=== PATIENT | male | born 1990 | race Caucasian/White ===

== ENCOUNTER 2019-12-09 04:25 | Emergency (ER) | payer SELFPAY ==
[2019-12-09 04:28] VITALS: BP 149/95; PULSE 62; RESP 18; TEMP 36.8; O2SAT 99; BMI 24.3
--- NOTE | 2019-12-09 04:41 | ED_ITS ---
HPI - Dental/Oral General: Chief complaint: Dental/Oral Stated complaint: DENTAL PAIN Time Seen by Provider: 12/09/19 04:40 History of Present Illness: HPI Narrative: Al is a 29-year-old male who comes in complaining of dental pain. The pain is been present for the past several days. He denies any fever, facial swelling or vomiting. The pain is located in his upper right side of his mouth. He states he is tried to make appointments with dentist but secondary to the COVID pandemic he has been unable to secure an appointment. Teeth map: 1. Associated symptoms: Denies ear or mastoid pain, fever(s), odynophagia or tongue swelling Review of Systems Const: Denies: fever(s), chills, body aches, fatigue, malaise, night sweats or diaphoresis Eyes: Denies: change in vision, blurry vision or blind spots ENMT: Denies: throat pain, odynophagia, hoarseness, ear or mastoid pain, ear discharge, change in hearing or nasal discharge Card: Denies: chest pain, palpitations, irregular heart rhythm, lighthe adedness, syncope, pre-syncope, dyspnea on exertion or orthopnea Resp: Denies: dyspnea, productive cough, non-productive cough, wheezing, hemoptysis or chest congestion GI: Denies: abdominal pain, nausea, vomiting, hematemesis, coffee ground emesis, heartburn, diarrhea, constipation, GI cramping, hematochezia or melena : Denies: flank pain, dysuria, urinary frequency, urinary urgency, oliguria, urinary incontinence or hematuria Musc: Denies: neck pain, back pain, extremity pain, extremity swelling, joint pain, joint swelling, joint redness, joint warmth or joint stiffness Skin/Breast: Denies: rash, pruritus, erythema, skin tenderness or jaundice Neuro: Denies: headache(s), numbness in extremities, weakness in extremities, sensory changes, lack of coordination, difficulty walking, dizziness, vertigo, confusion or Slurred speech present Endo: Denies: polyuria, polydipsia, tired all the time, cold intolerance, excessive sweating, flushing, hot flashes or heat intolerance Romario/Lymph: Denies: easy bruising, easy bleeding, petechiae, purpura or enl arged lymph nodes All/Imm: Denies: urticaria, throat swelling, tongue swelling, facial swelling or acute wheezing PFSH ED PFSH: Medical History No pertinent past medical history Social History Smoking and tobacco status: current every day smoker Physical Exam Const: COMMON NORMALS: no acute distress, patient oriented x3, no limitations, healthy appearing and well nourished EXAM LIMITATIONS: no altered mental status GENERAL APPEARANCE: cooperative, well kempt and well developed HENMT: COMMON NORMALS: normocephalic, atraumatic, hearing grossly normal bilaterally, external ears normal, EAC's normal, Normal external nose present and moist oral mucous membranes HEAD & SCALP: normal to inspection, normocephalic and atraumatic FACE & SINUS: normal facial exam and face symmetric NOSE: Normal external nose present and Normal nares present EXTERNAL EAR: Yes external ears normal EXTERNAL AUDITORY CANAL: EAC's normal MOUTH: Normal oral and palatal mucosa present, lip normal and tongue normal TEETH & GINGIVA: Yes other (Fifth tooth on the right side from back as marked on diagram with a severe carried down to the pulp. No associated gingival or abscess seen. No evidence of facial swelling or erythema.) Eye: COMMON NORMALS: Equal, round and reactive pupils present, EOMs intact bilaterally, conjunctivae normal and no scleral icterus GENERAL EYE: appearance normal, both eyes and all related structures ALIGNMENT: Yes alignment normal PERIORBITAL: periorbital findings normal EYELID: eyelids normal CONJUNCTIVA: Yes conjunctivae normal SCLERA: sclerae normal PUPIL: Yes Equal, round and reactive pupils present Neck/C-Spine: COMMON NORMALS: full ROM, no lymphadenopathy, supple, no meningeal signs and no JVD GENERAL: Yes normal visual inspection and Yes trachea midline CERVICAL SPINE: Yes cervical ROM normal Chest: COMMONS NORMALS: normal inspection of the chest and normal palpation of entire chest wall Resp: COMMON NORMALS: normal respiratory effort, No retractions, No use of accessory muscles and clear to auscultation bilaterally EFFORT & INSPECTION: Yes able to speak in complete sentences AUSCULTATION: clear to auscultation bilaterally, no crackles, no rales, no rhonchi and no wheezes Cardio: COMMON NORMALS: no JVD, regular rate, regular rhythm, S1 normal heart sound present, S2 normal heart sound present, No gallops present (Cardio), No clicks present (Cardio), No murmurs present (Cardio) and No rub (Cardio) RATE: regular rate RHYTHM: regular rhythm HEART SOUNDS: S1 normal heart sound present, S2 normal heart sound present, no click, no gallops, no murmurs and no rubs GI: COMMON NORMALS: Soft to palpation, non-tender, No hepatosplenomegaly present and no masses PALPATION: Yes Soft to palpation, No Tenderness to palpation present (GI), No Guarding due to palpation present (GI), No Rigid due to palpation, Yes No hepatosplenomegaly present, No Hernia present, No Palpable mass present and No Pulsatile mass present : COMMON NORMALS: Yes no CVA tenderness BLADDER/KIDNEY EXAM: Yes no CVA tenderness Back/Pelvis: COMMON NORMALS: no CVA tenderness, thoracic and lumbar spine normal to inspection, no thoracic nor lumbar tenderness and thoraco-lumbar ROM normal Extremity: COMMON NORMALS: normal to inspection, full ROM, capillary refill normal, no joint enlargement, no clubbing, cyanosis or edema and no calf tenderness Neuro: COMMON NORMALS: patient oriented x3, CN's II-XII intact bilaterally, moves all extremities, no focal motor deficits and no sensory deficits noted MENINGEAL SIGNS: Yes no meningeal signs SPEECH: speech normal Psych: COMMON NORMALS: mental status grossly normal, Normal thought process present, cooperative, normal affect, speech normal and activity/motor behavior normal APPEARANCE: Yes well kempt SPEECH: Yes normal speech THOUGHT PROCESS: Normal thought process present Skin: COMMON NORMALS: no rashes or lesions noted, turgor normal, no jaundice, no petechiae and no mottling GENERAL SKIN EXAM: no rashes or lesions noted and turgor normal Course Vital Signs: Vital signs: Vital Signs Temperature 98.2 F 12/09/19 04:28 Pulse Rate 62 12/09/19 04:28 Respiratory Rate 18 12/09/19 04:28 Blood Pressure 149/95 12/09/19 04:28 Pulse Oximetry 99 12/09/19 04:28 MDM - Dental/Oral MDM Narrative: Medical decision making narrative: Patient has an obvious dental carry with pain. There is no sign of dental abscess at this time. I will place the patient on pain medication, clindamycin for infection and have him follow-up with a dentist as he is trying to do. I see no sign of airway compromise or deep space infection or abscess at this time. Discharge Plan Discharge Patient Disposition: Home, Self-Care Clinical Impression: Toothache Condition: Stable Prescriptions: New ibuprofen 800 mg tablet 800 mg PO TID PRN (Reason: pain) Qty: 30 RF: 0 Cleocin HCl 150 mg capsule 300 mg PO Q6H 10 Days Qty: 80 RF: 0 Discharge Orders: Discharge Order (Routine); Ordered 12/09/19 Ordered By: Joann Gómez Discharge Diet: Advance as tolerated Discharge Activity: Increase activity as tolerated Patient Instructions: Dental Caries (ED) Activity Restrictions/Additional Instructions: Please return to the ER immediately for any of the signs or symptoms listed on your discharge instruction sheets, worsening/changing of your symptoms, you are not getting better as quickly as expected, or for ANY other cause or concerns. Call a local dentist or [facility] for an appointment to be seen for definitive care. Coding Level of Care Code ED Training Project Manager for Zack Chacon
[2019-12-09] MEDS: HYDROcodone-acetaminophen 10-325 mg Tablet 1 TAB PO (04:47)
[2019-12-09] MEDS: ibuprofen 600 mg Tablet PO (04:47)
[2019-12-09] MEDS: clindamycin 150 mg Capsule 300 MG PO (04:47)
== END 2019-12-09 05:05 | disposition home or self-care (01) ==
PROVIDERS: Emergency Provider Emergency Medicine
DX: K08.89 Other specified disorders of teeth and supporting structures (principal); F17.210 Nicotine dependence, cigarettes, uncomplicated
CPT/HCPCS: 12345; 99281; 99283

== ENCOUNTER 2020-02-20 15:03 | Inpatient (IN) | payer SELFPAY ==
[2020-02-20 15:04] VITALS: BP 156/90; PULSE 58; RESP 16; TEMP 36.8; O2SAT 98; BMI 23.7
--- NOTE | 2020-02-20 15:05 | ECG_ITS ---
[facility] Test Date: 2020-02-20 Pat Name: Al Noble Department: Room: Gender: Male [employer]: : 1990 Requested By: Joann Noriega Order Number: [id number] Leo MD: Tariq Sellers M.D. Measurements Intervals [place] Rate: 59 P: 68 IN: 132 QRS: 59 QRSD: 112 T: 43 QT: 401 QTc: 398 Interpretive Statements SINUS BRADYCARDIA MODERATE INTRAVENTRICULAR CONDUCTION DELAY [110+ ms QRS DURATION] Compared to ECG 12/28/2018 22:25:50 Sinus arrhythmia no longer present T-wave abnormality no longer present Prolonged QT interval no longer present Electronically Signed On 02-20-2020 16:07:19 CDT by Tariq Sellesr M.D. [id number]
[2020-02-20 15:30] VITALS: RESP 18
--- NOTE | 2020-02-20 15:35 | W.ED.PSYCH ---
HPI - Psych General: Chief Complaint: Psychiatric Symptoms Stated Complaint: si Time Seen by Provider: 02/20/20 15:05 Source: patient Limitations: no limitations History of Present Illness: HPI Narrative: Real is a nice 29-year-old male who comes in with a complaint of suicidal ideation. He states he was going to try to hang himself but his mother stopped it. He appears severely depressed. His mother brought him here to the ER for evaluation. He does want to get help. He states he needs to get his life and medications straightened out. The patient is withdrawn and of a difficult historian. Review of Systems Const: Denies: fever(s), chills, body aches, fatigue, malaise or diaphoresis Eyes: Denies: change in vision, blurry vision, blind spots, photophobia, eye discharge or eye redness ENMT: Denies: throat pain, odynophagia, hoarseness, swelling of lips/tongue, oral sores, ear or mastoid pain, ear discharge, change in hearing or nasal discharge Card: Denies: chest pain, palpitations, irregular heart rhythm, edema, lightheadedness, syncope, pre-syncope, dyspnea on exertion or orthopnea Resp: Denies: dyspnea, productive cough, non-productive cough, wheezing, hemoptysis or chest congestion GI: Denies: abdominal pain, nausea, vomiting, hematemesis, coffee ground emesis, heartburn, diarrhea, constipation, GI cramping, hematochezia or melena : Denies: flank pain, dysuria, urinary frequency, urinary urgency or hematuria Musc: Denies: neck pain, back pain, extremity pain, extremity swelling, joint pain, joint swelling, joint redness, joint warmth or joint stiffness Skin/Breast: Denies: rash, pruritus, erythema, skin tenderness or jaundice Neuro: Denies: headache(s), numbness in extremities, weakness in extremities, sensory changes, lack of coordination, difficulty walking, dizziness, vertigo, confusion, Slurred speech present or seizure-like activity Romario/Lymph: Denies: easy bruising, easy bleeding, petechiae, purpura or enlarged lymph nodes All/Imm: Denies: urticaria, throat swelling, tongue swelling, facial swelling or acute wheezing PFSH ED PFSH: Medical History (Updated 02/20/20 @ 15:38 by Joann Gómez) No pertinent past medical history No pertinent past medical history Social History Smoking and tobacco status: current every day smoker Physical Exam Const: COMMON NORMALS: no acute distress, patient oriented x3, no limitations, healthy appearing and well nourished GENERAL APPEARANCE: cooperative, well kempt and well developed HENMT: COMMON NORMALS: normocephalic, atraumatic, external ears normal, EAC's normal and Normal external nose present HEAD & SCALP: normal to inspection, normocephalic and atraumatic FACE & SINUS: normal facial exam and face symmetric NOSE: Normal external nose present and Normal nares present EXTERNAL EAR: Yes external ears normal EXTERNAL AUDITORY CANAL: EAC's normal MOUTH: Normal oral and palatal mucosa present, lip normal and tongue normal Eye: COMMON NORMALS: Equal, round and reactive pupils present and conjunctivae normal GENERAL EYE: appearance normal, both eyes and all related structures ALIGNMENT: Yes alignment normal PERIORBITAL: periorbital findings normal EYELID: eyelids normal CONJUNCTIVA: Yes conjunctivae normal SCLERA: sclerae normal PUPIL: Yes Equal, round and reactive pupils present Neck/C-Spine: COMMON NORMALS: full ROM, no lymphadenopathy, supple, no meningeal signs and no JVD GENERAL: Yes normal visual inspection and Yes trachea midline Chest: COMMONS NORMALS: normal inspection of the chest and normal palpation of entire chest wall Resp: COMMON NORMALS: normal respiratory effort, No retractions and No use of accessory muscles EFFORT & INSPECTION: Yes able to speak in complete sentences and Yes symmetric chest movement AUSCULTATION: no crackles, no rales, no rhonchi and no wheezes Cardio: COMMON NORMALS: no JVD, regular rate, regular rhythm, S1 normal heart sound present and S2 normal heart sound present RATE: regular rate RHYTHM: regular rhythm HEART SOUNDS: S1 normal heart sound present, S2 normal heart sound present, no click, no gallops, no murmurs, no rubs and abnormal split S2 GI: COMMON NORMALS: Soft to palpation and No hepatosplenomegaly present PALPATION: Yes Soft to palpation, No Tenderness to palpation present (GI), No Guarding due to palpation present (GI), No Rigid due to palpation, Yes No hepatosplenomegaly present, No Hernia present, No Palpable mass present and No Pulsatile mass present : COMMON NORMALS: Yes no CVA tenderness BLADDER/KIDNEY EXAM: Yes no CVA tenderness Back/Pelvis: COMMON NORMALS: no CVA tenderness, thoracic and lumbar spine normal to inspection, no thoracic nor lumbar tenderness and thoraco-lumbar ROM normal Extremity: COMMON NORMALS: normal to inspection, full ROM, capillary refill normal, no joint enlargement, no clubbing, cyanosis or edema and no calf tenderness Neuro: COMMON NORMALS: patient oriented x3, CN's II-XII intact bilaterally, moves all extremities, no focal motor deficits and no sensory deficits noted MENINGEAL SIGNS: Yes no meningeal signs SPEECH: speech normal Psych: COMMON NORMALS: mental status grossly normal, Normal thought process present, cooperative, normal affect, speech normal and activity/motor behavior normal APPEARANCE: Yes well kempt SPEECH: Yes normal speech THOUGHT PROCESS: Normal thought process present Skin: COMMON NORMALS: no rashes or lesions noted, turgor normal, no jaundice, no petechiae and no mottling GENERAL SKIN EXAM: no rashes or lesions noted and turgor normal MDM - Psych MDM Narrative: Medical decision making narrative: Patient is requesting to come in. I will place an affidavit on the chart and he can be 96 later if necessary. The case was reviewed in full with Dr. Hudson and he is agreeable to admission. Lab Data: Labs: Lab Results 02/20/20 02/20/20 02/20/20 Range/Units 15:09 15:29 15:29 WBC 5.7 (4.0-10.0) 10^3/ uL RBC 4.96 (4.1-5.3) 10^6/u L Hgb 14.2 (11.7-16.6) g/dL Hct 43.9 (42.0-52.0) % MCV 88.5 (80-94) fL MCH 28.6 (28.0-34.0) pg MCHC 32.3 (30.0-36.0) g/dL RDW 12.4 (12.1-15.1) % Plt Count 199 (130-400) 10^3/c mm MPV 11.5 H (7.4-10.4) fL Neut % (Auto) 57.3 % Lymph % (Auto) 30.8 % Simpson % (Auto) 8.1 % Eos % (Auto) 2.7 % Baso % (Auto) 0.7 % Neut # (Auto) 3.24 (1.8-7.7) 10^3/u L Lymph # (Auto) 1.7 (0.8-4.8) 10^3/u L Simpson # (Auto) 0.5 (0.2-0.9) 10^3/u L Eos # (Auto) 0.2 (0.0-0.8) 10^3/u L Baso # (Auto) 0.0 (0.0-0.1) 10^3/u L Nucleated RBC % (a uto) 0 % Nucleated RBCs # 0.0 /100WBC PT 12.40 (10.5-13.3) SECO NDS INR 0.90 (0.8-1.2) Sodium (136-145) mmol/L Potassium (3.5-5.1) mmol/L Chloride (98-107) mmol/L Carbon Dioxide (22-29) mmol/L Anion Gap (5-19) BUN (6-20) mg/dL Creatinine (0.7-1.2) mg/dL GFR Calculation (90-130) mL/min Glucose (65-115) mg/dL Calculated Osmolal ity (285-295) mOsm/k g Calcium (8.5-10.5) mg/dL Total Bilirubin (0.15-1.2) mg/dL AST (0-40) U/L ALT (0-41) U/L Alkaline Phosphata se (40-130) IU/L Total Protein (6.6-8.7) g/dL Albumin (3.5-5.2) g/dL Globulin (1.3-4.6) g/dL TSH (0.27-4.20) uIU/ mL Salicylates (3-10) mg/dL Urine Opiates Scre en Negative (Negative) ng/mL Acetaminophen (10-30) ug/mL Ur Barbiturates Sc reen Negative (Negative) ng/mL Phenytoin (10-20) ug/mL Valproic Acid (50-100) ug/mL Carbamazepine (4.0-12.0) ug/mL Ur Phencyclidine S crn Negative (Negative) ng/mL Ur Amphetamines Sc reen Positive H (Negative) ng/mL U Benzodiazepines Scrn Negative (Negative) ng/mL Estelline (0.6-1.2) mmol/L Urine Cocaine Scre en Negative (Negative) ng/mL U Marijuana (THC) Screen Negative (Negative) ng/mL Ethyl Alcohol (0-10) mg/dL 02/20/20 02/20/20 Range/Units 15:29 15:29 WBC (4.0-10.0) 10^3/ uL RBC (4.1-5.3) 10^6/u L Hgb (11.7-16.6) g/dL Hct (42.0-52.0) % MCV (80-94) fL MCH (28.0-34.0) pg MCHC (30.0-36.0) g/dL RDW (12.1-15.1) % Plt Count (130-400) 10^3/c mm MPV (7.4-10.4) fL Neut % (Auto) % Lymph % (Auto) % Simpson % (Auto) % Eos % (Auto) % Baso % (Auto) % Neut # (Auto) (1.8-7.7) 10^3/u L Lymph # (Auto) (0.8-4.8) 10^3/u L Simpson # (Auto) (0.2-0.9) 10^3/u L Eos # (Auto) (0.0-0.8) 10^3/u L Baso # (Auto) (0.0-0.1) 10^3/u L Nucleated RBC % (a uto) % Nucleated RBCs # /100WBC PT (10.5-13.3) SECO NDS INR (0.8-1.2) Sodium 137 (136-145) mmol/L Potassium 3.8 (3.5-5.1) mmol/L Chloride 103 (98-107) mmol/L Carbon Dioxide 25 (22-29) mmol/L Anion Gap 12.8 (5-19) BUN 6 (6-20) mg/dL Creatinine 0.8 (0.7-1.2) mg/dL GFR Calculation 116.0 (90-130) mL/min Glucose 77 (65-115) mg/dL Calculated Osmolal ity 279 L (285-295) mOsm/k g Calcium 9.5 (8.5-10.5) mg/dL Total Bilirubin 0.2 (0.15-1.2) mg/dL AST 19 (0-40) U/L ALT 31 (0-41) U/L Alkaline Phosphata se 81 (40-130) IU/L Total Protein 6.7 (6.6-8.7) g/dL Albumin 4.2 (3.5-5.2) g/dL Globulin 2.5 (1.3-4.6) g/dL TSH 1.08 (0.27-4.20) uIU/ mL Salicylates < 0.3 L (3-10) mg/dL Urine Opiates Scre en (Negative) ng/mL Acetaminophen < 5.0 L (10-30) ug/mL Ur Barbiturates Sc reen (Negative) ng/mL Phenytoin 0.8 L (10-20) ug/mL Valproic Acid 2.8 L (50-100) ug/mL Carbamazepine 2.0 L (4.0-12.0) ug/mL Ur Phencyclidine S crn (Negative) ng/mL Ur Amphetamines Sc reen (Negative) ng/mL U Benzodiazepines Scrn (Negative) ng/mL Estelline 0.1 L (0.6-1.2) mmol/L Urine Cocaine Scre en (Negative) ng/mL U Marijuana (THC) Screen (Negative) ng/mL Ethyl Alcohol < 10 (0-10) mg/dL EKG Data^: EKG 1: Attestation: I personally reviewed and interpreted this EKG as follows: EKG interpretation date: 02/20/20 EKG interpretation time: 15:34 Interpretation: Sinus bradycardia at 59 beats a minute, no acute ST-T wave changes. Normal intervals. No blocks. Discharge Plan Discharge Patient Disposition: Admitted As Inpatient Admit Provider: Armond Hudson Clinical Impression: Suicidal ideation Condition: Stable Discharge Date/Time: 02/20/20 16:23 Coding Level of Care Code ED System Software Developer for Gayeg Fwd Exam Comprehensive
[2020-02-20 15:37] LABS: Basophils % 0.7 %; Eosinophils # 0.2 10^3/uL (0.0-0.8); Eosinophils % 2.7 %; Hematocrit 43.9 % (42.0-52.0); Hemoglobin 14.2 g/dL (11.7-16.6); Lymphocytes # 1.7 10^3/uL (0.8-4.8); Lymphocytes % 30.8 %; Mean Corpuscular HGB Conc 32.3 g/dL (30.0-36.0); Mean Corpuscular Hemoglobin 28.6 pg (28.0-34.0); Mean Corpuscular Volume 88.5 fL (80-94); Mean Platelet Volume 11.5 fL (7.4-10.4); Monocytes # 0.5 10^3/uL (0.2-0.9); Monocytes % 8.1 %; Neutrophils # 3.24 10^3/uL (1.8-7.7); Neutrophils % 57.3 %; Nucleated Red Blood Cells % 0 %; Platelet Count 199 10^3/cmm (130-400); Red Blood Count 4.96 10^6/uL (4.1-5.3); Red Cell Distribution Width 12.4 % (12.1-15.1); White Blood Count 5.7 10^3/uL (4.0-10.0)
[2020-02-20 15:43] VITALS: BP 128/92; PULSE 102; RESP 20; TEMP 36.8; O2SAT 99
[2020-02-20 15:47] LABS: Amphetamines Screen Urine Positive (Negative); Barbiturates Screen Urine Negative (Negative); Benzodiazepines Screen Urine Negative (Negative); Cocaine Screen Urine Negative (Negative); Opiate Screen Urine Negative (Negative); PCP Screen Urine Negative (Negative); THC Screen Urine Negative (Negative)
[2020-02-20] MEDS: LORazepam 1 mg Tablet PO (15:47)
[2020-02-20 16:07] LABS: Lithium 0.1 mmol/L (0.6-1.2)
[2020-02-20 16:16] LABS: Alanine Aminotransferase 31 U/L (0-41); Albumin Level 4.2 g/dL (3.5-5.2); Alkaline Phosphatase 81 IU/L (40-130); Anion Gap 12.8 (5-19); Aspartate Amino Transferase 19 U/L (0-40); Blood Urea Nitrogen 6 mg/dL (6-20); Calcium 9.5 mg/dL (8.5-10.5); Carbon Dioxide 25 mmol/L (22-29); Chloride 103 mmol/L (98-107); Globulin 2.5 g/dL (1.3-4.6); Glucose 77 mg/dL (65-115); Osmolality Calculated 279 mOsm/kg (285-295); Phenytoin Dilantin 0.8 ug/mL (10-20); Potassium 3.8 mmol/L (3.5-5.1); Sodium 137 mmol/L (136-145); Thyroid Stimulating Hormone 1.08 uIU/mL (0.27-4.20); Total Bilirubin 0.2 mg/dL (0.15-1.2); Total Protein 6.7 g/dL (6.6-8.7); Valproic Acid Level 2.8 ug/mL (50-100)
[2020-02-20 16:44] LABS: Acetaminophen < 5.0 ug/mL (10-30); Alcohol Level < 10 mg/dL (0-10); Salicylate < 0.3 mg/dL (3-10)
[2020-02-20 16:47] VITALS: BP 128/92; PULSE 102; RESP 20; TEMP 36.8
--- NOTE | 2020-02-20 17:25 | PC.NURSE ---
PATIENT IS COOPERATIVE. SEEMS A LITTLE LOST AT THE MOMENT. HE IS EATING IN THE DAYROOM. HE IS INTELLIGENT AND EASILY ENGAGED IN CONVERSATION. 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 HE ALSO STATED THAT HE IS IN SOME LEGAL TROUBLE HERE IN [facility]. HE SAYS HE HAS A FELONY FOR BURGLARY AND THE WELDER SHIELDED [employer] IS [employer]ARCEL[place]. HE MAY NEED SOCIAL WORK TO INTERVENE AND LET THE OFFICER KNOW HIS WHEREABOUTS.
[2020-02-20 21:52] VITALS: BP 127/76; PULSE 54; RESP 17; TEMP 37.3; O2SAT 98
[2020-02-21] MEDS: trazodone 50 mg Tablet PO (00:40)
[2020-02-21 06:00] VITALS: BP 138/73; PULSE 52; RESP 16; TEMP 36.8; O2SAT 99
[2020-02-21] MEDS: nicotine 21 mg Patch 1 PATCH TRANSDERMA (09:24)
--- NOTE | 2020-02-21 11:41 | PM.NHP ---
Providers/Chief Complaint Admitting Physician: Armond Hudson MD Chief Complaint: si HPI NPU History of Present Illness Al Noble is a 29 year old male who presented to the emergency department reporting suicidal ideation. He endorses he was going to hang himself but his mother preventative. To the emergency room doctor. Severely depressed and was brought to the emergency room by his mother. He endorsed the need to get his life and medication straightened out. He was withdrawn and not endorsed to be the best historian. He was admitted to the [facility] psychiatric unit for definitive treatment of those issues.He reported that he has a long history of mental health issues going back to his childhood and endorsed having multiple hospitalizations. He reports that he?s been on medications in the past some of them were helpful and some that weren?t. Endorse that the seroquel, Clonopin and Celexa were helpful. We discussed the risks benefits and alternatives of starting or restarting those medications and he understood and agreed to proceed as a document in the snow. He was fairly tired and withdrawn and limited in his participation, But was able to review his last hospitalization with me, An excerpt of which is included below as there are limited changes. Per [place] [facility] [place] eval: History of Present Illness Date of Service: Dec 29, 2018 Chief Complaint: I jumped off a roof. HPI: Al Noble is a 28-year-old man who is brought into the emergency room after he jumped off of a roof in a suicide attempt. He has been struggling with a number of psychosocial stressors including unemployment and lack of financial support. He has not been able is all those problems. He has also been using both methamphetamine and marijuana. He is homeless and unemployed. He decided to come to the emergency room to see if he can get some help. He is not considered a reliable source of information at this time primarily due to his fatigue and tendency to answer any questions in the positive. He did say that the jumping off the roof was impulsive and that he had not been thinking about suicide earlier in the day but that he does the left side frequently. He has never been hospitalized for mental health reasons as an adult. He was hospitalized several times child. He is not having suicidal or homicidal thoughts at this time. He denies a history of auditory or visual sensations. Past psychiatric history: The patient reports being hospitalized as a child 3 times. He does not provide details. He is on no medications for mental health reasons. Social history: Patient grew up in [place]. He graduated from high school. He was gainfully employed in [place]. His mother moved down to this area. He has moved down here to be with her. He is unable to find steady employment in this area and is now homeless. Allergies: Coded Allergies: IBUPROFEN (Verified Allergy, Unknown, 12/29/18) Meds NPU Home Medications Medication Instructions Recorded Confirmed Last Taken Type No Known Home Medications 02/20/20 02/20/20 Unknown History Allergies Allergy/AdvReac Type Severity Reaction Status Date / Time No Known Allergies Allergy Verified 12/09/19 04:34 PFSH NPU PFSH: Medical History (Updated 02/24/20 @ 06:08 by Armond Hudson MD) No pertinent past medical history No pertinent past medical history Social History Smoking and tobacco status: current every day smoker Mental Status Exam MSE Comments: This is a well nourished well-developed tall white male with adequate dress, grooming and eye contact. no abnormal movements except for a psycho motor retardation. Semi cooperative exam in mild distress. Speech was decreased rate and volume. Mood described as depressed, affect congruent. Thought process organized. thought content: patient denies homicidal ideation but endorsed suicidal ideation, there were no delusions reported or noted, he denied any auditory or visual hallucinations. Attention and concentration are intact and memory was mostly reliable, But none were formally tested. He was alert and oriented times three. Inside and judgment appear fair and impulse control is limited. Vitals/I&O/Wt Last Vital Signs Temp 98.2 F 02/21/20 06:00 Pulse 57 L 02/21/20 06:00 Resp 16 02/21/20 06:00 BP 138/73 02/21/20 06:00 Pulse Ox 99 02/21/20 06:00 Data NPU : 02/20/20 15:29 02/20/20 15:29 A&P Assessment and plan (1) Amphetamine abuse: Status: Acute (2) Suicidal ideation: Status: Acute (3) Depression: Status: Acute Additional A&P Information this is a 29 year old white male with a long history of mental health issues, hospitalizations , depression and suicide attempts who presents with active suicidal thoughts off of his medication. Continue current medication except restart celexa and Seroquel. Continue Q 15 minute checks for safety. Encouraged individual, group and milieu therapy. Encourage discharge too so we're living treatment at the highest level of care to which he's willing to commit. Involuntary Hold Information 96 Hour Hold: 96 Hour Involuntary Admission: No Attestations NPU Medical Necessity Statement*: Inpatient hospitalization is medically necessary and the clinically appropriate intervention at this time . He will be in the hospital for over two midnights. We will monitor medications and make adjustments as indicated. Likely length of stay three to five days. Coding Level of Care Code Acute Revenue Enforcement Agent for [facility] Diagnoses Amphetamine abuse F15.10 Suicidal ideation R45.851 Depression F32.9
[2020-02-21] MEDS: hyDROXYzine 25 mg Capsule 50 MG PO (13:37)
[2020-02-21 14:00] VITALS: BP 148/79; PULSE 82; RESP 18; TEMP 37.6
--- NOTE | 2020-02-21 15:33 | PC.NURSE ---
PT GIVEN VISTARIL 50MG PO FOR ANXIETY.
[2020-02-21] MEDS: quetiapine 100 mg Tablet PO (20:37)
--- NOTE | 2020-02-21 20:39 | PC.NURSE ---
PT REFUSED 2100 CELEXA. PT STATES THIS MEDICATION DOES NOT WORK FOR HIM AND HE WILL TALK TO DR. AMES IN THE MORNING ABOUT STARTING A DIFFERENT MEDICATION.
[2020-02-21 22:00] VITALS: BP 128/94; PULSE 82; RESP 21; TEMP 37.2; O2SAT 100
[2020-02-22 06:00] VITALS: BP 117/80; PULSE 98; RESP 18; TEMP 37; O2SAT 100
--- NOTE | 2020-02-22 07:57 | PC.NURSE ---
refused scheduled Celexa, stated it doesn't work for me, I told the doctor that already
[2020-02-22] MEDS: nicotine 2 mg Gum BUCCAL ×2 (10:35→18:09)
[2020-02-22 14:00] VITALS: BP 125/75; PULSE 88; RESP 20; TEMP 36.9; O2SAT 99
--- NOTE | 2020-02-22 16:41 | PM.NPN ---
Subjective NPU Subjective: Interval history: Al presented today reporting that we had a miscommunication in relation to the Celexa. He reports that the Celexa was not effective and he did not like the way I felt. We discussed the risks benefits and alternatives of initiating Prozac and he understood and agreed to proceed as is documented in this note. He reports that he slept fairly well with the seroquel. He endorsed his addiction is part of the problem, But that he needs to get his overall life and depression under control. Mental Status Exam MSE Comments: This is a well nourished well-developed tall white male with adequate dress, grooming and eye contact. no abnormal movements except for a psycho motor retardation. Semi cooperative exam in mild distress. Speech was decreased rate and volume. Mood described as depressed, affect congruent. Thought process organized. thought content: patient denies homicidal ideation but endorsed suicidal ideation, there were no delusions reported or noted, he denied any auditory or visual hallucinations. Attention and concentration are intact and memory was mostly reliable, But none were formally tested. He was alert and oriented times three. Inside and judgment appear fair and impulse control is limited. Vitals/I&O/Wt Last Vital Signs Temp 98.4 F 02/22/20 14:00 Pulse 88 02/22/20 14:00 Resp 20 H 02/22/20 14:00 BP 125/75 02/22/20 14:00 Pulse Ox 99 02/22/20 14:00 Weight last 48 hrs Weight 82.372 kg Data NPU : 02/20/20 15:29 02/20/20 15:29 A&P Additional A&P Information (1) Amphetamine abuse: (2) Suicidal ideation: (3) Depression: this is a 29 year old white male with a long history of mental health issues, hospitalizations , depression and suicide attempts who presents with active suicidal thoughts off of his medication. Continue current medication except discontinue celexa and start prozac.. Continue Q 15 minute checks for safety. Encouraged individual, group and milieu therapy. Encourage discharge too so we're living treatment at the highest level of care to which he's willing to commit. Involuntary Hold Information 96 Hour Hold: 96 Hour Involuntary Admission: No Attestations NPU Medical Necessity Statement*: Inpatient hospitalization is medically necessary and the clinically appropriate intervention at this time . We will monitor medications and make adjustments as indicated. Likely length of stay 2-4 days. Coding Level of Care Code Acute Prototype Deicer Assembler for Zack Chacon
[2020-02-22] MEDS: hyDROXYzine 25 mg Capsule 50 MG PO ×2 (16:59→20:21)
--- NOTE | 2020-02-22 17:00 | PC.NURSE ---
Addendum entered by Nataly Reina LPN 02/22/20 17:31: prn med somewhat effective, pt isolating to room, mood bland Original Note: PRN VISTARIL 50 MG GIVEN PO PER PT C/O STATED ANXIETY
[2020-02-22] MEDS: fluoxetine 10 mg Capsule PO (17:44)
[2020-02-22] MEDS: quetiapine 100 mg Tablet PO (20:21)
[2020-02-22] MEDS: trazodone 50 mg Tablet PO (20:21)
--- NOTE | 2020-02-22 20:47 | PC.NURSE ---
pt given scheduled seroquel and PRN vistaril and trazodone per request.
[2020-02-22 21:55] VITALS: BP 139/68; PULSE 76; RESP 18; TEMP 36.8; O2SAT 97
[2020-02-23 06:00] VITALS: BP 120/52; PULSE 59; RESP 15; TEMP 36.8; O2SAT 99
[2020-02-23] MEDS: fluoxetine 20 mg Capsule PO (08:57)
[2020-02-23] MEDS: nicotine 2 mg Gum BUCCAL ×2 (11:56→15:08)
[2020-02-23 12:45] VITALS: BP 116/69; PULSE 84; RESP 20; TEMP 36.6; O2SAT 98
--- NOTE | 2020-02-23 12:46 | PC.RESP ---
Smoking Cessation information sent to patient.
--- NOTE | 2020-02-23 15:27 | PM.NPN ---
Subjective NPU Subjective: Interval history: This is our first encounter and patient gives a recall of the events leading to his hospitalization. Information he provides is consistent with that in his chart. He feels that he is doing well medically. It is his intent to report to the [facility] in [place]. He is hoping to be released tomorrow morning so that he can get transportation [facility]. Mental Status Exam MSE Comments: Mental Status Exam: Appearance: hygiene is good; no gross neurological deficits., gait is unremarkable; AIMS=0 Speech: Speech is of normal rate and rhythm and easily understood. Thought processes: Thought processes are abstract. Judgment is adequate for safety. Associations: intact Psychotic processes: There is no indication of guarding or paranoia. There is no attention to the internal stimuli. Auditory and visual hallucinations are denied. Judgment: Insight is fair. Problem solving skills are adequate for safety. Orientation: The patient is oriented to person, place time and situation. Memory: no deficits noted in immediate, intermediate, or remote spheres. Attention: The patient is alert and interpersonally engaged. Language: Verbalizations are coherent. Fund of knowledge: Fund of knowledge is adequate. Affect/Mood: Affect is consistent with a euthymic mood. denied suicidal ideation Affective range is appropriate. Psychosis: perception unimpaired except through cognitive distortion; reality testing intact. Vitals/I&O/Wt Last Vital Signs Temp 97.9 F 02/23/20 12:45 Pulse 84 02/23/20 12:45 Resp 20 H 02/23/20 12:45 BP 116/69 02/23/20 12:45 Pulse Ox 98 02/23/20 12:45 Weight last 48 hrs Weight 82.372 kg Data NPU : 02/20/20 15:29 02/20/20 15:29 A&P Assessment and plan (1) Suicidal ideation: Status: Acute (2) Amphetamine abuse: Status: Acute Additional A&P Information -Continue hospitalization for safety and stabilization. We will continue fluoxetine 20 mg daily, Seroquel 100 mg at bedtime and buspirone 15 mg twice daily. Patient was initiated on this medication prior to my arrival. He is tolerating them well and reports positive response. -Encouraged group attendance and participation. . -Discharge planning in progress -Recent clinical observations and plan reviewed with treatment team. Involuntary Hold Information 96 Hour Hold: 96 Hour Involuntary Admission: No Attestations NPU Medical Necessity Statement*: Patient will remain in the hospital another 1-2 nights to assess medication tolerance and efficacy Coding Level of Care Code Acute Presidential Support Specialist for Zack Chacon Diagnoses Suicidal ideation R45.851 Amphetamine abuse F15.10
[2020-02-23] MEDS: quetiapine 100 mg Tablet PO (20:53)
[2020-02-23] MEDS: hyDROXYzine 25 mg Capsule 50 MG PO ×2 (20:53→20:55)
[2020-02-23] MEDS: trazodone 50 mg Tablet PO ×2 (20:53→20:55)
[2020-02-23 22:00] VITALS: BP 151/89; PULSE 75; RESP 18; TEMP 36.6; O2SAT 100
--- NOTE | 2020-02-23 23:58 | PC.NURSE ---
pt given scheduled seroquel as well as prn vistaril and trazodone.
[2020-02-24 06:00] VITALS: BP 128/78; PULSE 68; RESP 18; TEMP 36.4; O2SAT 98
[2020-02-24] MEDS: fluoxetine 20 mg Capsule PO (08:51)
[2020-02-24] MEDS: nicotine 2 mg Gum BUCCAL (08:58)
--- NOTE | 2020-02-24 09:05 | P.DS_ITS ---
Diagnoses at Discharge Discharge Diagnosis (1) Amphetamine abuse: Status: Resolved (2) Suicidal ideation: Status: Resolved (3) Depression: Status: Resolved Reason for Visit Reason for Visit: si Brief History: Al Noble is a 29 year old male who presented to the emergency department reporting suicidal ideation. He endorses he was going to hang himself but his mother preventative. To the emergency room doctor. Severely depressed and was brought to the emergency room by his mother. He endorsed the need to get his life and medication straightened out. He was withdrawn and not endorsed to be the best historian. He was admitted to the [facility] psychiatric unit for definitive treatment of those issues.He re ported that he has a long history of mental health issues going back to his childhood and endorsed having multiple hospitalizations. He reports that he?s been on medications in the past some of them were helpful and some that weren?t. Endorse that the seroquel, Clonopin and Celexa were helpful. We discussed the risks benefits and alternatives of starting or restarting those medications and he understood and agreed to proceed as a document in the snow. He was fairly tired and withdrawn and limited in his participation, But was able to review his last hospitalization with me, An excerpt of which is included below as there are limited changes. Per his previous [facility] NPU eval: History of Present Illness Date of Service: Dec 29, 2018 Chief Complaint: I jumped off a roof. HPI: Al Noble is a 28-year-old man who is brought into the emergency room after he jumped off of a roof in a suicide attempt. He has been struggling with a number of psychosocial stressors including unemployment and lack of financial support. He has not been able is all those problems. He has also been using both methamphetamine and marijuana. He is homeless and unemployed. He decided to come to the emergency room to see if he can get some help. He is not considered a reliable source of information at this time primarily due to his fatigue and tendency to answer any questions in the positive. He did say that the jumping off the roof was impulsive and that he had not been thinking about suicide earlier in the day but that he does the left side frequently. He has never been hospitalized for mental health reasons as an adult. He was hospitalized several times child. He is not having suicidal or homicidal thoughts at this time. He denies a history of auditory or visual sensations. Past psychiatric history: The patient reports being hospitalized as a child 3 times. He does not provide details. He is on no medications for mental health reasons. Social history: Patient grew up in [place]. He graduated from high school. He was gainfully employed in [place]. His mother moved down to this area. He has moved down here to be with her. He is unable to find steady employment in this area and is now homeless. Hospital Course Hospital Course The patient was admitted to the adult psychiatric unit and entered into the form of individual and group therapies as part of the unit protocol. They were provided 24-hour access to medication supervision and therapeutic activities by trained psychiatric nursing. The patient was educated with regard to potential benefits and side effects of new medications. We agreed to a contingency plan of discontinuation of medication in the event of intolerable side effects. The patient was intent on going to a rehabilitation program and [place]. He would be reporting to the [facility] after being transported to the [facility] there. Discharge Summary At the time of discharge, the patient was no longer an imminent risk to self or others. The patient was free of suicidal or homicidal ideation. Auditory and visual hallucinations were denied. Involuntary Hold Information 96 Hour Hold: 96 Hour Involuntary Admission: No Mental Status Exam MSE Comments: Discharge Mental Status Exam: Appearance: hygiene is good; no gross neurological deficits., gait is unremarkable; AIMS=0 Speech: Speech is of normal rate and rhythm and easily understood. Thought processes: Thought processes are abstract. Judgment is adequate for safety. Associations: intact Psychotic processes: There is no indication of guarding or paranoia. There is no attention to the internal stimuli. Auditory and visual hallucinations are denied. Judgment: Insight is fair. Problem solving skills are adequate for safety. Orientation: The patient is oriented to person, place time and situation. Memory: no deficits noted in immediate, intermediate, or remote spheres. Attention: The patient is alert and interpersonally engaged. Language: Verbalizations are coherent. Fund of knowledge: Fund of knowledge is adequate. Affect/Mood: Affect is consistent with a euthymic mood. denied suicidal ideation Affective range is appropriate. Psychosis: perception unimpaired except through cognitive distortion; reality testing intact. Discharge Data Vitals: Last Vital Signs Temp 97.5 F L 02/24/20 06:00 Pulse 68 08/04/20 06:00 Resp 18 02/24/20 06:00 BP 128/78 02/24/20 06:00 Pulse Ox 98 02/24/20 06:00 Discharge Plan Discharge Patient Disposition: Home Condition: Stable Prescriptions: New buspirone 15 mg Tablet 15 mg PO BID Qty: 60 RF: 3 trazodone 50 mg Tablet 50 mg PO BEDTIME PRN (Reason: Sleep) Qty: 15 RF: 3 quetiapine 100 mg Tablet 100 mg PO BEDTIME Qty: 30 RF: 3 citalopram 20 mg Tablet 20 mg PO DAILY Qty: 30 RF: 3 fluoxetine 20 mg Capsule 20 mg PO DAILY Qty: 30 RF: 3 Discharge Orders: Discharge Order (Routine); Ordered 02/24/20 Ordered By: Alessio Andrade Referrals: [facility] [Other] (Please follow up for your walk in assessment within 3-5 days of discharge. No call-ahead is necessary, just walk in and be seen. Bring your I.D., social security card or number, and insurance information We accept Medicare, Medicaid, numerous private insurance providers and accept self-pay on a sliding scale for those who qualify. ) [facility] [Other] (*for assistance getting a temporary ID At discharge you will be sent to [facility] in [place], they will help coordinate housing resources for you. If you are at risk of becoming homeless or currently without a safe, stable place to stay, please call [phone] or visit us at the [facility], [facility]. One of the [facility] service coordinators will meet with you to help identify resources and options that may meet your individual needs. Hours of Operation: Sunday: 9am ? 5pm Sunday: 9am ? noon and 1pm ? 5pm Sunday: 9am ? 5pm : 10am ? 5pm Sunday: 9am ? 5pm* *[facility] is closed the first Sunday of every month ) [facility] [Other] (Go here after getting your ID at [facility]) Patient Instructions: Anxiety (DC) Discharge Attestations NPU Time Spent in Discharge Care*: greater than 30 min Coding Level of Care Code Acute Nascar Driver for [employer] Diagnoses Amphetamine abuse F15.10 Suicidal ideation R45.851 Depression F32.9
[2020-02-24 09:06] VITALS: BP 128/78; PULSE 68; RESP 18; TEMP 36.4; O2SAT 98
== END 2020-02-24 11:10 | disposition home or self-care (01) | DRG 897 ==
LOC: ER 15:38 → NP 02-22 19:52
PROVIDERS: Emergency Medicine; Admitting Provider Psychiatry & Neurology Psychiatry; Visit Provider Psychiatry & Neurology Psychiatry
DX: F15.10 Other stimulant abuse, uncomplicated (principal); R45.851 Suicidal ideations; F32.9 Major depressive disorder, single episode, unspecified; F17.210 Nicotine dependence, cigarettes, uncomplicated
CPT/HCPCS: 12345; 36415; 80053; 80156; 80164; 80178; 80185; 80306; 80307; 84443; 85025; 85610; 93005; 99284

== ENCOUNTER 2021-06-26 15:18 | Emergency (ER) | payer MEDICAID, SELFPAY ==
[2021-06-26 15:32] VITALS: BP 129/86; PULSE 107; RESP 16; TEMP 36.7; O2SAT 100
--- NOTE | 2021-06-26 16:05 | W.ED.SKABFB ---
HPI - Skin/Abscess/Foreign Bdy General: Chief complaint: Skin/Abscess/Foreign Body Stated complaint: ABSCESS L ARMPIT Time Seen by Provider: 06/26/21 15:58 Source: patient Limitations: no limitations History of Present Illness: HPI narrative: Raised area occurred to left axilla 1 week ago. Currently half a centimeter in size. complaint: abscess/boil Onset (ago): week(s) Tetanus up to date: yes Severity: mild Severity scale (1-10): 2 Quality: aching Pain Consistency: intermittent Relieving factors: none Exacerbating factors: none Context: none Associated symptoms: Reports no associated symptoms Treatments prior to arrival: attempted to drain pus at home Review of Systems General: Reports: 10 or more systems reviewed and unremarkable except in HPI and below Skin/Breast: Reports: skin tenderness, skin swelling and sores PFS ED PFSH: Medical History (Updated 06/26/21 @ 16:10 by Allyson Barnett APRN) No pertinent past medical history No pertinent past medical history Social History Smoking and tobacco status: current every day smoker Physical Exam Const: COMMON NORMALS: no acute distress GENERAL APPEARANCE: cooperative, comfortable and well kempt HENMT: COMMON NORMALS: normocephalic and atraumatic HEAD & SCALP: normal to inspection, normocephalic and atraumatic Eye: COMMON NORMALS: Equal, round and reactive pupils present GENERAL EYE: appearance normal, both eyes and all related structures PUPIL: Yes Equal, round and reactive pupils present Neck/C-Spine: COMMON NORMALS: full ROM, no lymphadenopathy and no JVD Lymph: LYMPHATIC: no lymphadenopathy noted Resp: COMMON NORMALS: normal respiratory effort, No retractions, No use of accessory muscles and clear to auscultation bilaterally EFFORT & INSPECTION: Yes able to speak in complete sentences AUSCULTATION: clear to auscultation bilaterally Cardio: COMMON NORMALS: no JVD, regular rate, S1 normal heart sound present and S2 normal heart sound present RATE: regular rate HEART SOUNDS: S1 normal heart sound present and S2 normal heart sound present GI: COMMON NORMALS: Normal to inspection, nondistended, normoactive bowel sounds present Extremity: GENERAL: Yes normal exam except as noted Psych: APPEARANCE: Yes well kempt Skin: COMMON NORMALS: no rashes or lesions noted GENERAL SKIN EXAM: no rashes or lesions noted LESIONS: lesion noted 0.5 cm in size area of superficial absess. Course Vital Signs: Vital signs: Vital Signs Temperature 98.0 F 06/26/21 15:32 Pulse Rate 107 H 06/26/21 15:32 Respiratory Rate 16 06/26/21 15:32 Blood Pressure 129/86 06/26/21 15:32 Pulse Oximetry 100 06/26/21 15:32 MDM - Skin/Abscess/Foreign Bdy MDM Narrative: Medical decision making narrative: 0.5 cm area of abscess to left axilla isolated location no surrounding erythema or swelling. History of MRSA. Patient attempted to drain at home was unsuccessful educated not to attempt to drain or manipulate abscess will treat with doxycycline follow-up with PCP in 1 week Discharge Plan Discharge Patient Disposition: Home Clinical Impression: Abscess of skin or subcutaneous tissue Condition: Stable Prescriptions: New doxycycline monohydrate 100 mg capsule 100 mg PO BID Qty: 14 RF: 0 No Action buspirone 15 mg Tablet 15 mg PO BID Qty: 60 RF: 3 trazodone 50 mg Tablet 50 mg PO BEDTIME PRN (Reason: Sleep) Qty: 15 RF: 3 quetiapine 100 mg Tablet 100 mg PO BEDTIME Qty: 30 RF: 3 citalopram 20 mg Tablet 20 mg PO DAILY Qty: 30 RF: 3 fluoxetine 20 mg Capsule 20 mg PO DAILY Qty: 30 RF: 3 Discharge Orders: Discharge ED (Routine); Ordered 06/26/21 Ordered By: Allyson Barnett Referrals: Allyson Barnett APRN [Emergency Provider] - Discharge Diet: Usual diet Discharge Activity: Resume usual activity Patient Instructions: Opioid Safety Coding Level of Care Code ED Dispensing Optician Apprentice for Zack Chacon
== END 2021-06-26 16:17 | disposition home or self-care (01) ==
PROVIDERS: Emergency Provider Nurse Practitioner Family
DX: L02.412 Cutaneous abscess of left axilla (principal); F17.210 Nicotine dependence, cigarettes, uncomplicated; Z86.14 Personal history of Methicillin resistant Staphylococcus aureus infection
CPT/HCPCS: 99281